=== PATIENT | male | born 1990 | race African-American/Black ===

== ENCOUNTER 2017-11-17 13:23 | Emergency (ER) | payer OTHER ==
[2017-11-17 13:34] VITALS: BP 152/76; PULSE 69; RESP 20; TEMP 98
--- NOTE | 2017-11-17 13:48 | ED ---
General Adult HPI - General Chief complaint: Nausea/Vomiting/Diarrhea Stated complaint: Vomiting Time Seen by Provider: 11/17/17 13:38 Source: patient, RN notes reviewed Mode of arrival: ambulatory Limitations: no limitations - History of Present Illness Initial comments: 27-year-old male with no significant past medical history presents for evaluation of nausea vomiting and diarrhea. Patient had several episodes of diarrhea over the past 48 hours, last episode was yesterday morning which was greater than 24 hours ago. He also had an episode of diarrhea yesterday evening at 7 PM. The symptoms are resolving. Patient states he is overall feeling better. Denies any fever. Denies any current abdominal pain. Denies URI symptoms. Patient had a normal breakfast this morning with no nausea or vomiting. - Related Data Previous Rx's Medication Instructions Recorded Benzonatate [Tessalon Perles] 100 mg PO TID #30 cap 07/09/15 guaiFENesin [Mucinex] 1,200 mg PO Q12HR #14 tab.er.[id number] 07/09/15 Allergies Allergy/AdvReac Type Severity Reaction Status Date / Time No Known Allergies Allergy Verified 11/17/17 13:34 Review of Systems ROS Statement: Those systems with pertinent positive or pertinent negative responses have been documented in the HPI. ROS Other: All systems not noted in ROS Statement are negative. Past Medical History Past Medical History: No Reported History History of Any Multi-Drug Resistant Organisms: None Reported Past Surgical History: No Surgical Hx Reported Past Psychological History: No Psychological Hx Reported Smoking Status: Former smoker Past Alcohol Use History: None Reported Past Drug Use History: None Reported General Exam Limitations: no limitations General appearance: alert, in no apparent distress Head exam: Present: atraumatic, normocephalic Eye exam: Present: normal appearance, PERRL ENT exam: Present: normal exam, mucous membranes moist Neck exam: Present: normal inspection. Absent: tenderness, meningismus Respiratory exam: Present: normal lung sounds bilaterally. Absent: respiratory distress Cardiovascular Exam: Present: regular rate, normal rhythm GI/Abdominal exam: Present: soft. Absent: distended, tenderness Extremities exam: Present: normal inspection, normal capillary refill. Absent: pedal edema Neurological exam: Present: alert, oriented X3 Psychiatric exam: Present: normal affect, normal mood Course Vital Signs 11/17/17 13:31 Temperature 98.0 F Pulse Rate 69 Respiratory 20 Rate Blood Pressure 152/76 O2 Sat by Pulse 99 Oximetry Medical Decision Making - Medical Decision Making 27-year-old male with nausea vomiting diarrhea. Patient appears well-hydrated, vital signs are stable. Abdomen soft nontender nondistended. Patient's symptoms are improving. Patient left work today with these symptoms, He wanted to be evaluated. He will continue to hydrate orally. Return with any worsening or changing symptoms. Disposition Clinical Impression: Gastroenteritis Disposition: HOME SELF-CARE Condition: Good Instructions: Acute Nausea and Vomiting (ED), Acute Diarrhea (ED) Referrals: None,Stated [Primary Care Provider] - 1-2 days Shaylee Chapa MD [STAFF PHYSICIAN] - 1-2 days Time of Disposition: 13:48
== END 2017-11-17 14:00 | disposition home or self-care (01) ==
LOC: EC 13:23
DX: K52.9 Noninfective gastroenteritis and colitis, unspecified (principal); Z87.891 Personal history of nicotine dependence
CPT/HCPCS: 99283